=== PATIENT | male | born 1995 | race Caucasian/White ===

== ENCOUNTER 2018-06-02 23:20 | Emergency (ER) | payer SELFPAY ==
[~2018-06-02] VITALS: Ht 177.8 cm; Wt 79.4 kg
[2018-06-02 23:20] VITALS: BP 131/79
--- NOTE | 2018-06-02 23:40 | NUR ---
PT REFUSED TO BE SEEN BY DR. PT IS AAOX4. PT AMBULATED WITH STEADY GAIT NOTED. MD BURGESS
== END 2018-06-02 23:52 | disposition left against medical advice (07) ==
LOC: ER 23:21
DX: Z53.21 Procedure and treatment not carried out due to patient leaving prior to being seen by health care provider (principal)
CPT/HCPCS: A4606; Z7610